=== PATIENT | male | born 1935 | race Caucasian/White ===

== ENCOUNTER 2016-10-17 12:22 | Outpatient (CLI) | payer MEDICARE, OTHER ==
[2016-10-17 13:35] LABS: #Basophils 0.1 thou/uL (0.0-0.2); #Eosinphils 0.1 thou/uL (0.0-0.7); #Lymphocytes 1.7 thou/uL (1.20-3.40); #Monocytes 0.7 thou/uL (0.11-0.59); #Neutrophils 3.9 thou/uL (1.40-6.50); %Eosinophils 1.9 % (0.0-10.0); %Lymphocytes 25.6 % (21.0-51.0); %Monocytes 11.1 % (0.0-10.0); %Neutrophils 60.3 % (42.0-75.0); Hemoglobin 15.4 g/dL (14.0-18.0); Mean Corpuscular HGB CONC 34.8 g/dL (32.0-36.0); Mean Corpuscular Hemoglobin 33.8 pg (27.0-31.0); Mean Corpuscular Volume 97.1 fl (80.0-94.0); Mean Platelet Volume 7.1 fL (7.4-10.4); Platelet Count 173 thou/uL (130-400); RBC Distribution Width 12.2 % (11.5-14.5); Red Blood Cell (RBC) Count 4.55 mill/uL (4.70-6.10); White Blood Cell (WBC) Count 6.5 thou/uL (4.8-10.8)
[2016-10-17 13:41] LABS: ALT (SGPT) 13 U/L (8-55); AST (SGOT) 19 U/L (5-34); Albumin 3.9 g/dL (3.4-4.8); Alkaline Phosphatase 81 U/L (40-150); Anion Gap 14 mmol/L (10-20); BUN (Urea Nitrogen) 17 mg/dL (8.4-25.7); Bilirubin, Total 0.9 mg/dL (0.2-1.2); Calc. Creatinine Clearance 0 mL/min (70-130); Calcium 9.4 mg/dL (7.8-10.44); Carbon Dioxide 23 mmol/L (23-31); Cardiac Risk 4.5 (Less than 4.5); Chloride 107 mmol/L (98-107); Cholesterol 162 mg/dl (< 200 Desired); Estimated GFR-MDRD 70; Globulin 3.1 g/dL (2.4-3.5); Glucose 114 mg/dL (83-110); HDL Cholesterol 36 mg/dL (>60 Neg Risk); LDL Cholesterol, Calculated 106 mg/dL; Potassium 3.9 mmol/L (3.5-5.1); Sodium 140 mmol/L (136-145); Triglycerides 100 mg/dL (Less than 150)
[2016-10-17 13:58] LABS: PSA-Symptomatic (DIAGNOSTIC) 2.3 ng/mL (0-4.0); Thyroid Stimulating Hormone 0.8206 uIU/mL (0.35-4.94)
[2016-10-17 18:27] LABS: Testosterone, Total 661.9 ng/dL (221-716)
== END 2016-10-17 12:23 | disposition home or self-care (01) ==
LOC: BURLAB 12:22
PROVIDERS: ATTEND Family Medicine
DX: N40.0 Benign prostatic hyperplasia without lower urinary tract symptoms (principal); I48.91 Unspecified atrial fibrillation; R53.83 Other fatigue; I10 Essential (primary) hypertension
CPT/HCPCS: 36415; 80053; 80061; 84153; 84270; 84403; 84443; 85025

== ENCOUNTER 2018-07-15 16:18 | Emergency (ER) | payer MEDICARE, OTHER ==
--- NOTE | 2018-07-15 19:23 | RAD ---
RIGHT FOOT THREE VIEWS 07/15/18 No acute fracture was seen. All bony structures appear intact. Minor cortical thickening of the third metatarsal shaft could be from an old injury. A calcaneal spur is present. IMPRESSION: No acute findings. POS: HOME
== END 2018-07-15 17:06 | disposition home or self-care (01) ==
LOC: BURERS 16:18
DX: S93.601A Unspecified sprain of right foot, initial encounter (principal); I10 Essential (primary) hypertension; M19.90 Unspecified osteoarthritis, unspecified site; I48.91 Unspecified atrial fibrillation; X50.1XXA Overexertion from prolonged static or awkward postures, initial encounter

== ENCOUNTER 2022-04-02 14:05 | Outpatient (CLI) | payer OTHER | END 2022-04-02 14:06 | disposition home or self-care (01) | LOC: BURCT 14:05 | PROVIDERS: ATTEND Family Medicine | DX: I61.1 Nontraumatic intracerebral hemorrhage in hemisphere, cortical (principal) | CPT/HCPCS: 70450 ==

== ENCOUNTER 2023-09-23 15:45 | Outpatient (CLI) | payer OTHER | END 2023-09-23 15:46 | disposition home or self-care (01) | LOC: BURRAD 15:45 | PROVIDERS: ATTEND Family Medicine | DX: J18.9 Pneumonia, unspecified organism (principal); J94.8 Other specified pleural conditions | CPT/HCPCS: 71046 ==

== ENCOUNTER 2024-12-20 13:33 | Outpatient (CLI) | payer MEDICARE | END 2024-12-20 13:34 | disposition home or self-care (01) | LOC: BURRAD 13:33 | PROVIDERS: ATTEND Internal Medicine Cardiovascular Disease | DX: Z09 Encounter for follow-up examination after completed treatment for conditions other than malignant neoplasm (principal); Z92.29 Personal history of other drug therapy | CPT/HCPCS: 36415; 71046; 84443 ==